=== PATIENT | female | born 1990 | race Caucasian/White ===

== ENCOUNTER 2022-08-30 15:54 | Emergency (ER) | payer MEDICAID, SELFPAY ==
[2022-08-30 15:55] VITALS: BP 118/80; PULSE 98; RESP 16; TEMP 36.4; O2SAT 97
--- NOTE | 2022-08-30 16:06 | EX.ED.SAOD ---
HPI History of Present Illness Chief Complaint: Substance Abuse Detail of Chief Complaint: Requesting detox from heroin Informant: patient Narrative Narrative: Patient presents to the emergency department requesting detox from heroin. Patient states that she last use around 1 AM. Typically she uses the IV route. Patient normally does about a gram of heroin daily. She also admits to occasional cocaine use. She denies alcohol use. She does smoke cigarettes. Patient last went through a detox program in May in [place]. Currently just feels anxious. Had no fever. No vomiting. PFSH PFSH Allergy/AdvReac Type Severity Reaction Status Date / Time Penicillins Allergy PT UNSURE Verified 08/30/22 15:57 OF REACTION ROS ROS ED Review of Systems ROS Unobtainable: other Constitutional Constitutional ED: Reports lethargy; Denies chills, fever(s), sweats or weight loss Eyes Eyes: Denies blurry vision, change in vision or diplopia ENT ENT ED: Denies rhinorrhea or sore throat Cardiovascular Cardiovascular: Denies chest pain, orthopnea or racing heartbeat Respiratory/Chest Respiratory/Chest: Denies cough, dyspnea, dyspnea on exertion, orthopnea or sputum Gastrointestinal Gastrointestinal: Denies abdominal pain, diarrhea, nausea or vomiting Genitourinary Genitourinary ED: Denies dysuria, hematuria or urinary frequency Musculoskeletal Musculoskeletal: Denies arthralgias, back pain, myalgias or neck pain Integumentary Denies abscess, Abrasions or rash Neurologic Neurologic: Denies headache(s) or weakness Psychiatric Psychiatric: Denies anxiety, depression or suicidal thoughts Endocrine Endocrinology: Denies polydipsia, polyphagia or polyuria Hematologic/Lymphatic Hematologic/Lymphatic: Denies easy bleeding, easy bruising or lymphadenopathy Allergic/Immunologic Allergic/Immunologic ED: Denies mouth swelling, tongue swelling or urticaria EXAM Physical Exam Const Vital Signs: 08/30/22 15:55 Temperature 97.6 F L Temperature Source Temporal Pulse Rate 98 Respiratory Rate 16 Blood Pressure 118/80 Blood Pressure Mean 92 Pulse Ox 97 Oxygen Delivery Method Room Air Positive well nourished and well developed General Appearance ED: well developed and NAD HEENT Reports TM's clear and moist mucous membranes normocephalic and atraumatic; Negative for trauma or tenderness Tympanic Membrane ED: Yes TM's clear Eyes PERRL and EOMs intact bilaterally General Eye ED: Negative for pale conjunctiva or scleral icterus Neck no lymphadenopathy, supple and no JVD General: Negative for tenderness Chest Wall inspection of chest normal and palpation of chest normal Chest: Negative for tenderness Resp normal respiratory effort and clear to auscultation bilaterally Effort and Inspection: Negative for respiratory distress or pain with movement Auscultation: Negative for rhonchi, wheezes or diminished lung sounds Cardio regular rate, regular rhythm, S1 normal heart sound, S2 normal heart sound and no murmurs Peripheral Pulses: pulses 2+ throughout GI normal to inspection, nondistended, normoactive bowel sounds, soft to palpation, non-tender, non-distended and no masses Back/Spine no CVA tenderness and no thoracic nor lumbar tenderness Extremity Extremity Narrative: Patient with multiple track gordillo to upper extremities as well as to the neck. General Extremety ED: Negative for edema General Extremity: Negative for edema Neuro oriented x3, CN's II-XII intact bilaterally, no sensory deficits noted and gait normal Sensorium / Orientation: awake, alert, oriented to person, oriented to place and oriented to time Motor Exam: strength 5/5 throughout and strength abnormal Psych mental status grossly normal Skin no rashes or lesions noted and no wounds MDM MDM MDM Narrative Medical decision making narrative: We ordered basic lab work-up including CBC and LFTs. Ordered test as well as urine tox screen and serum alcohol level. Patient was advised of the rules for admission into the [facility] program and that she would not be able to have her phone with her. Apparently she decided then that she would not stay here for admission and would find another facility that would allow her to have her phone. Patient left the department before I was aware that patient had left. Discharge Plan Triage Chief Complaint: Substance Abuse ED Provider: Devante Mascorro Dx/Rx/DC Orders Clinical Impression: Opiate withdrawal, Illicit drug use Primary Care Provider: Allison Rosen NP Referrals: [facility] Doctor,Out of [Non-Staff] - Disposition Disposition: Elopement
--- NOTE | 2022-08-30 16:30 | CM.ED ---
Social Work Note REBEKAH met with glove presser to review patient's interest in detox and inform REBEKAH patient and patient's fiance were both coming in for detox and would be placed on separate floors. Patient informed RN she wasn't sure she would be going to [facility] as she has children and needs her phone. SW attempted to meet with patient, however, patient gathering her belongings and states she is leaving. Care team updated. Deyanira Max PIPE STRAIGHTENER, JANNY
== END 2022-08-30 16:38 | disposition left against medical advice (07) ==
PROVIDERS: Emergency Provider Emergency Medicine; Visit Provider Emergency Medicine
DX: F11.23 Opioid dependence with withdrawal (principal); F17.210 Nicotine dependence, cigarettes, uncomplicated
CPT/HCPCS: 99281; 99282